=== PATIENT | female | born 1950 | race Caucasian/White ===

== ENCOUNTER → 2016-12-17 | Day surgery (SDC) | payer BC ==
[2016-11-18 09:13] VITALS: Ht 165.1 cm; Wt 63.6 kg
[~2016-12-17] VITALS: Ht 165.1 cm; Wt 63.6 kg
[~2016-12-17] MED LIST: ATOR-22 PO; CITA40TA12 PO; CLON0.5T3 PO; CYCL10TA6 PO; HYDR25TA4 PO; IOPAMIDOL INJ 61% 15 ML VIAL ONE; IRBE1TAB50 PO; LIDOCAINE HCL 1% MPF 5 ML VIAL ONE; SODIUM CHLORIDE 0.9% INJ 10 ML VIAL ONE
[2016-12-17 12:17] VITALS: TEMP 37.1
--- NOTE | 2016-12-17 13:02 | History & Physical Bridge - [place] ---
H&P Re-Evaluation Bridge Note: I have examined the patient, reviewed the History & Physical and in the interval since the performance of the History & Physical I have noted the following changes of clinical significance: No changes noted
[2016-12-17 13:30] VITALS: BP 154/75; PULSE 71; O2SAT 96
--- NOTE | 2016-12-17 13:32 | Discharge Instructions ---
Discharge Instructions Date of Service Dec 17, 2016. Visit Reason for Visit: Lumbar Radiculopathy Discharge Discharge Diagnosis / Problem: right leg pain Discharge Goals Goal(s): Decrease discomfort, Improve function Activity Recommendations Activity Limitations: resume your previous activity Anesthesia . Post Anesthesia Instructions: If you have had General Anesthesia or IV Sedation: * Do not drive today. * Resume driving when surgeon permits. * Do not make important decisions or sign legal documents today. * Call surgeon for: 1. Temperature elevations greater than 101 degrees F. 2. Uncontrollable pain. 3. Excessive bleeding. 4. Persistent nausea and vomiting. 5. Medication intolerance (nausea, vomiting or rash). * For nausea and vomiting use only clear liquids such as: tea, soda, bouillon until nausea subsides, then gradually increase diet as tolerated. * If you have any concerns or questions, call your surgeon's office. If physician is unavailable and it is an emergency, call 911 or go to the nearest emergency room. . Diet Recommendations Recommended Home Diet: resume previous diet Procedures Procedures Performed: Lumbar Epidural Steroid Injection. Pending Studies Studies pending at discharge: no Medical Emergencies . Who to Call and When: Medical Emergencies: If at any time you feel your situation is an emergency, please call 911 immediately. . Non-Emergent Contact Non-Emergency issues call your: Specialist . . "Provider Documentation" section prepared by Narciso Hoover. .
--- NOTE | 2016-12-17 16:14 | [facility] Operative Report ---
Operative Report Date of Service Dec 17, 2016. Operative Report DICTATED BY: Narciso Hoover M.D. DATE OF SURGERY: 12/17/16. DATE OF OPERATION: 12/17/2016 PREOPERATIVE DIAGNOSIS: L4-L5 herniated nucleus pulposus with a right L5 radiculopathy. POSTOPERATIVE DIAGNOSIS: Same. PROCEDURE: Right L5-S1 paramedian intralaminar epidural steroid injection under fluoroscopic guidance. INDICATIONS: The patient is a 66-year-old white female who presents today for an epidural injection to decrease discomfort and improve function as she has failed conservative physical therapy and medications. She has classic pain radiating down the L5 dermatomal distribution of her right leg. CONSENT: Verbal and written consent was obtained from the patient. Risks and benefits were reviewed. Risks include but are not limited to epidural hematoma, allergic reaction, and dural puncture. The patient wishes to proceed. PROCEDURE: The patient was taken back to the special procedures room of [facility] where she was maintained in a prone position. Backside was cleansed with Betadine x3 and a dry sterile dressing was applied. Fluoroscope was used to identify the L5-S1 intralaminar space and overlying skin was anesthetized with 4 mL of lidocaine 1% with a 25 gauge 1.5-inch needle. A 22-gauge 3-1/2 inch Tuohy needle was then directed down towards the intralaminar space and was advanced under lateral fluoroscopic guidance and loss of resistance was noted at a depth of 5 cm. Isovue-300 contrast 1 mL was injected in which demonstrated epidural uptake pattern with spread that was confirmed with both AP and lateral views. She then underwent injection after negative aspiration of 40 mg of Depo-Medrol and 4 mL of preservative free sodium chloride. Injection was well tolerated. DISPOSITION: 1. The patient is taken out into the discharge recovery area where she will be discharged home once discharge criteria have been met. 2. Follow up in the [facility] office in 2-4 weeks. I attest to the content of the Intraoperative Record and any orders documented therein. Any exceptions are noted below. I attest to the content of the Intraoperative Record and any orders documented therein. Any exceptions are noted below.
== END | disposition home or self-care (01) ==
LOC: X.SURG 12:02
PROVIDERS: ATTEND Physical Medicine & Rehabilitation
DX: M51.16 Intervertebral disc disorders with radiculopathy, lumbar region (principal)

== ENCOUNTER → 2016-12-31 | Outpatient (CLI) | payer BC ==
[~2016-12-31] MED LIST changes: -IOPAMIDOL INJ 61% 15 ML VIAL ONE; -LIDOCAINE HCL 1% MPF 5 ML VIAL ONE; -SODIUM CHLORIDE 0.9% INJ 10 ML VIAL ONE
--- NOTE | 2017-01-01 07:53 | MAMMOGRAPHY REPORT ---
BILATERAL DIGITAL SCREENING MAMMOGRAM TOMOSYNTHESIS WITH CAD: 12/31/2016 CLINICAL HISTORY: Routine screening. Patient has no complaints. TECHNIQUE: Breast tomosynthesis in addition to standard 2D mammography was performed. Current study was also evaluated with a Computer Aided Detection (CAD) system. COMPARISON: Comparison is made to exams dated: 12/14/2015 mammogram, 12/12/2014 mammogram, 06/28/2013 bulmaro mogram, 02/14/2011 mammogram, 04/05/2009 mammogram, and 07/11/2003 mammogram - [facility] er. BREAST COMPOSITION: The tissue of both breasts is heterogeneously dense, which may obscure small mas ses. FINDINGS: No new suspicious mass, architectural distortion or cluster of microcalcifications is seen . There are stable postsurgical changes in the right breast, with several surgical clips remaining i n place. Stable benign-appearing microcalcifications in the anterior right breast. IMPRESSION: ACR BI-RADS CATEGORY 1: NEGATIVE There is no mammographic evidence of malignancy. A 1 year screening mammogram is recommended. The pa tient will receive written notification of the results. Approximately 10% of breast cancers are not detected with mammography. A negative mammographic report should not delay biopsy if a clinically suggestive mass is present. Pia Shahid M.D. ay/:12/31/2016 15:54:54 [place]: Marisol Butler, [facility] letter sent: Normal 1/2 BI-RADS Code: ACR BI-RADS Category 1: Negative
== END | disposition home or self-care (01) ==
LOC: C.MAMM 14:19
PROVIDERS: ATTEND Family Medicine
DX: Z12.31 Encounter for screening mammogram for malignant neoplasm of breast (principal)

== ENCOUNTER 2022-09-04 06:33 | Observation (INO) ==
--- NOTE | 2022-08-07 12:09 | PAT Medication Instructions ---
Medication Instructions Date of Service August 07, 2022 Home Medications amlodipine 5 mg tablet (Norvasc) 10 mg PO QAM citalopram 40 mg tablet 40 mg PO QAM clonazepam 0.5 mg tablet 0.5 mg PO HS irbesartan 300 mg tablet (Avapro) 300 mg PO QAM metformin 500 mg tablet 500 mg PO QAM atorvastatin 40 mg tablet 40 mg PO HS iron polysaccharide complex-iron heme polypeptide 28 mg tablet (Feosol Bifera) 1 tab PO 3XWK methocarbamol 500 mg tablet 500 mg PO Q8H PRN Pain gabapentin 300 mg tablet 300 mg PO TID DO NOT take the morning of surgery irbesartan 300 mg tablet (Avapro) 300 mg PO QAM metformin 500 mg tablet 500 mg PO QAM iron polysaccharide complex-iron heme polypeptide 28 mg tablet (Feosol Bifera) 1 tab PO 3XWK methocarbamol 500 mg tablet 500 mg PO Q8H PRN Pain Take morning of surgery With a small sip of water, OTHERWISE NOTHING TO EAT OR DRINK AFTER MIDNIGHT: amlodipine 5 mg tablet (Norvasc) 10 mg PO QAM citalopram 40 mg tablet 40 mg PO QAM gabapentin 300 mg tablet 300 mg PO TID Take evening before surgery clonazepam 0.5 mg tablet 0.5 mg PO HS atorvastatin 40 mg tablet 40 mg PO HS methocarbamol 500 mg tablet 500 mg PO Q8H PRN Pain (if needed) gabapentin 300 mg tablet 300 mg PO TID Other Notes If you have any questions please call us at [phone] or [phone] or [phone] or [phone]
--- NOTE | 2022-08-12 15:43 | Anesthesiology Consultation ---
Date of Service August 12, 2022 Assessment & Plan (1) Encounter for pre-operative examination: - check BSG am DOS. - potential difficult intubation: limited cervical spine extension s/p cervical spine surgery. - Outpatient joint assessment: Patient is currently scheduled for inpatient pathway. If re-evaluated pending system levels during current pandemic/surgeon requests outpatient pathway, patient is not recommended candidate for outpatient joint program from anesthesia standpoint. Chart Review Chart Review: Acceptable Risk for Surgery and Patient seen in Pre Admission Testing Teaching & Discussion Pre-Anesthesia Teaching/Discussion Notes: Instructed NPO after midnight before surgery, except medications with 15 cc of water. Medication instructions provided according to the PAT guidelines. History Surgery Operation Date: 09/04/22 09:15 Proposed Procedures p Left Total Hip Arthroplasty - Scot Dickey MD Height/Weight Height: 5 ft 5 in Weight: 63.503 kg Allergies Allergy/AdvReac Type Severity Reaction Status Date / Time adhesive Allergy Mild RASH, SKIN Verified 08/07/22 09:49 MOORE nickel Allergy Mild RASH Verified 08/07/22 09:49 Sulfa (Sulfonamide Allergy Unknown UNSURE, Verified 08/07/22 09:49 Antibiotics) A CHILD Medications Home Medications Medication Instructions Recorded Confirmed Last Taken amlodipine 5 mg tablet (Norvasc) 10 mg PO QAM 02/18/19 08/07/22 05/19/22 11:00 citalopram 40 mg tablet 40 mg PO QAM 02/18/19 08/07/22 05/19/22 11:00 clonazepam 0.5 mg tablet 0.5 mg PO HS 02/18/19 08/07/22 05/18/22 irbesartan 300 mg tablet (Avapro) 300 mg PO QAM 02/18/19 08/07/22 05/18/22 metformin 500 mg tablet 500 mg PO QAM 10/22/20 08/07/22 Unknown atorvastatin 40 mg tablet 40 mg PO HS 01/08/22 08/07/22 05/18/22 iron polysaccharide complex-iron 1 tab PO 3XWK 01/08/22 08/07/22 05/16/22 heme polypeptide 28 mg tablet (Feosol Bifera) methocarbamol 500 mg tablet 500 mg PO Q8H PRN Pain 01/08/22 08/07/22 05/18/22 gabapentin 300 mg tablet 300 mg PO TID 08/07/22 08/07/22 Unknown omeprazole 10 mg capsule,delayed 10 mg PO QPM 08/12/22 08/12/22 Unknown release Past Medical History Medical History (Updated 08/13/22 @ 15:06 by Frankie Knowles PA-C) Anxiety and depression Bilateral lumbar radiculopathy Chronic back pain COPD (chronic obstructive pulmonary disease) pt unsure of diagnosis-denies SOB, coughing, wheezing currently or in past-denies being rx inhaler Diabetes mellitus, type 2 NIDDM GERD (gastroesophageal reflux disease) occasional, resolved with prn prilosec History of kidney stones Hyperlipidemia Hypertension controlled, stable per pt Patient denies h/o stroke, seizures, heart attack, heart failure, blood clots or blood transfusions. Exercise / Class Metabolic Activity II 4-5 Yardwork/Stairs/Walk up hill (denies chest discomfort or shortness of breath with 1 FOS) Past Family History Family History Brother FH: kidney cancer Past Surgical History Surgical History (Updated 08/12/22 @ 16:02 by Lorraine Min PA-C) History of appendectomy History of bilateral tubal ligation History of breast biopsy RIGHT-benign History of colonoscopy History of endometrial ablation History of lithotripsy History of total hip arthroplasty RIGHT Hx of lumpectomy RIGHT S/P cervical spinal fusion [id number] (done with Dr Treviño, [facility]) 12/2020. limited motion looking up. S/P epidural steroid injection Past Anesthesia History No Hx of Anesthesia Complications and No Family Hx of Anesthesia Complications History of PONV No Hx of Motion Sickness and History of PONV (denies needing scop patch) Social History Smoking Status: Current every day smoker (3 cigarettes daily-advised) tobacco type: cigarettes Smoking cigarettes per day: QUIT 06/2022 Do You Dip or Chew Tobacco: No Hx Alcohol Use: No Hx Substance Use: No substance use type: does not use Review of Systems Snoring, denies witnessed apneas. Patient denies chest pain, shortness of breath, dyspnea on exertion, fever, chills, cough, wheezing, or palpitations. Physical Exam Vital Signs Vitals BP 120/77 P 72 TEMP 97.5 SP02 94% on RA RESP 18 Physical Limited cervical extension range of motion without pain TMD 3.5 finger breadths Mallampati Score 3, small oral opening Dentition: multiple caps/crowns; denies chipped or loose teeth, implants or bridges Lungs: normal respiratory effort. Good air movement, clear throughout to auscultation, no adventitious breath sounds Cardiac: regular rate and rhythm, no murmurs noted Carotid arteries: negative bruit bilat Lab Results Anesthesia Preop Results Results Anesthesia Widget: WBC 11.30 K/ul (4.8-10.8) H 08/12/22 Hgb 14.1 g/dl (12.0-16.0) 08/12/22 Hct 42.7 % (37.0-47.0) 08/12/22 Plt 365 K/uL (130-400) 08/12/22 Na 134 mmol/L (136-145) L 08/12/22 K 4.6 mmol/L (3.5-5.1) 08/12/22 Cl 99 mmol/L (98-107) 08/12/22 CO2 30 mmol/L (21-32) 08/12/22 BUN 16 mg/dl (6-23) 08/12/22 Creat 0.63 mg/dl (0.6-1.2) 08/12/22 Glucose Level 83 mg/dl (70-99(Fasting)) 08/12/22 PT 10.3 Seconds (9.0-12.0) 08/12/22 PTT 28.6 Seconds (21.0-31.0) 08/12/22 INR 1.0 (0.9-1.1) 08/12/22 HA1c 6.1 % (4.5-5.6) H 08/12/22 Urine Color Yellow 08/12/22 Urine Appearance Clear (Clear) 08/12/22 Urine pH 5.5 (4.5-7.5) 08/12/22 Urine Specific [place] 1.018 (1.000-1.030) 08/12/22 Urine Protein Negative (Negative) 08/12/22 Urine Glucose (UA) Negative (Negative) 08/12/22 Urine Ketones Trace (Negative) H 08/12/22 Urine Blood Negative (Negative) 08/12/22 Urine Nitrite Negative (Negative) 08/12/22 Urine Bilirubin Negative (Negative) 08/12/22 Urine Urobilinogen Negative (Negative) 08/12/22 Urine Leukocyte Esterase 2+ (Negative) H 08/12/22 Urine WBC (Auto) 10-30 /hpf (0-5) H 08/12/22 Urine RBC (Auto) 5-10 /hpf (0-4) H 08/12/22 Urine Hyaline Casts (Auto) 1-5 /lpf (0-5) 08/12/22 Urine Epithelial Cells (Auto) >30 /lpf (0-5) H 08/12/22 Urine Bacteria (Auto) Negative (Negative) 08/12/22 Blood Type O Positive 08/12/22 Antibody Screen NEGATIVE 08/12/22 Testing Electrocardiogram Date: 08/12/22 NSR, rate 65 bpm COVID-19 Risk Screen Screening Information COVID-19 Screen Date: 08/12/22 Exposure 21 Days Family/Household +COVID Last 21 Days: No Exposure 10 Days Any COVID Exposure Last 10 Days: No Symptoms Last 10 Days Experienced COVID Sx Last 10 Days: No + COVID 0-90 Days COVID + in Last 0-90 Days: No
--- NOTE | 2022-08-13 15:07 | History & Physical Report ---
Date of Service August 13, 2022 Assessment & Plan (1) Osteoarthritis of left hip: Plan: PRE-OP Diagnosis: Left hip osteoarthritis Planned Procedure: Left total hip arthroplasty Plan: Patient is scheduled to undergo this procedure at the [facility] with a 23-hour observation admission with Dr. Dickey on August. Risks and complications of the procedure such as: Infection, bleeding, pain, scarring, nerve blood vessel damage, weakness, wound problems, stiffness, incomplete relief of symptoms, hardware failure, hardware loosening, wear, fracture, tendon or ligament injury, dislocation, leg length inequality, blood clots, Embolism, heart attack, stroke and were explained to the patient at her visit today. Informed consent to perform the procedure was obtained. Patient also understands risks of proceeding with surgical intervention during the COVID-19 pandemic. Currently she is asymptomatic and has not been in contact with anyone positive for the virus recently. Patient has an appointment to meet with anesthesia later today and while there will obtain CBC with differential, complete metabolic panel, PT/INR, blood type and screen, urinalysis, urine culture and sensitivity, EKG, hemoglobin A1c and a nasal cu lture for MRSA. Patient will also need preoperative medical clearance from their primary care provider Dr. Hammond. Patient states that she plans on doing in-home physical therapy for the first 1 to 2 weeks postoperatively. Patient will need a walker, raised toilet seat, shower chair and a hip kit. During today's visit we reviewed the total hip packet as well as precautions. We discussed discharge planning from the hospital. I provided paperwork to obtain a handicap placard for their vehicle. We discussed lectures offered by [facility] in regards to joint replacement surgery via Zoom. I advised the patient that upon discharge from hospital we will prescribe a narcotic pain medication and anti-inflammatory. Patient will also be on an 81 mg aspirin twice daily for blood clot prevention. Patient will be scheduled for 2-week postoperative follow-up visit with myself on September 17 at 9:45 AM. At that visit we will Provide the patient with an order for outpatient physical therapy and rehab protocol. Patient verbalizes understanding of all information provided during today's visit. She thanks for the care that she received. If she has questions or concerns that should arise prior to her surgery, she will contact clinic. Due to the patient's adhesive allergies, recommend closure with Monocryl and Tegaderms instead of Zipper and Silverlon. Can still use Dermabond. This chart was completed utilizing [employer] voice recognition software. Grammatical errors, random word insertions, pronoun errors, and in complete sentences are an occasional consequence of the system. Any questions or concerns about the content, text, or information contained within the body of this dictation should be addressed directly to the physician for clarification. History of Present Illness Chief Complaint: Chief Complaint: Left hip pain Primary Care Provider: Richar Murray DO History of Present Illness (including history relevant to procedure): This 72-year-old female presents to the clinic today for preoperative history and physical. Patient complains of significant left-sided groin pain that has been increasing over the past several months. She states that at times she does experience pain that radiates into her thigh. She feels that her range of motion in the hip is very limited as well. Patient states that she had a right total hip arthroplasty performed by Dr. Anitra vogt in 2012 and states that her symptoms present really are exactly the same way that her right hip was before having the replacement. Patient is electing to undergo surgical intervention for her severe left hip osteoarthritis. Review Of Systems: A 12 point review of systems is performed and is unremarkable except for those things stated in the HPI and past medical history. Past Medical History: Problems: Left lumbar radiculitis Diabetes mellitus with peripheral angiopathy without gangrene Osteopenia Major depression in complete remission Peripheral arterial disease History of fusion of cervical spine Cataract associated with type 2 diabetes mellitus Stenosis of cervical spine with myelopathy Lumbar disc narrowing Right lumbar radiculopathy Hypercholesterolemia Solitary thyroid nodule Hypertension Emphysema/COPD Anxiety Low back pain Sacroiliac joint dysfunction of right side Hip osteoarthritis Tobacco user DJD (degenerative joint disease) Procedure History Procedure Procedure Date Comments Appendectomy Kidney stone - kidney stone--laser sx Tubal ligation Epidural steroid injection 05/19/2022 - Left paramedial L5-S1 interlaminar epidural steroid injection under flu oroscopic guidance Epidural steroid injection L5-S1 01/16/2022 Mammogram - screening 10/15/2021 - Impression: There is no mammographic evidence of malignancy. A 1 year screening mammogram is recommended. (10/16/2022). The patient will receive written notification of the results. Bone density scan 10/15/2021 - left femur and left forearm (due to high spine density and history of right hip replacement)Femur neck t-score =- 1.5Femur total t-score = -1.5Forearm radius t-score = -2.110 year probability of fracture:major osteoporotic frature = 9.7%hip fracture 2.3%Repeat bone density test in October 2023 Lumbar epidural steroid injection AND SEPTEMBER 2020 04/02/2020 Right paramedian L5-S1 interlaminar epidural steroid injection under fluoroscopic guidance 04/02/2020 - Preoperative diagnoses: Lumbar spinal stenosis with right greater than left lumbar radiculopathy. Ultrasound of right breast maxillary soft tissue 01/05/2020 - Impression:1. No pathologic right axillary lesions were visualized ultrasonographically. Clinical follow-up is advocated. Lumbar epidural steroid injection 07/28/2019 - Pre-Op Diagnosis: Lumbar Radiculopathy Bilateral Digital Screening Mammogram Tomosynthesis with CAD 12/02/2018 - Impression: ACR BI RADS CATEGORY 2: BenignThere is no mammographic evidence of malignancy. DEXA - Dual energy X-ray photon absorptiometry 12/02/2018 Colonoscopy 10/28/2017 - tubular adenoma - repeat colonoscopy in 5 years - diverticulosis in the sigmoid colon'a singke non-bleeding colonc angioectasia. treated with heater probeone 7mm polyp in the proximal ascending colon, removed with a hot snare. resected and retrivedtwo 2 to 3 vmm polyps in the rectum, removed with a cold biopsy forcepsresected and retrieved Mammogram 12/31/2016 - Impression: ACR BI-RADS CATEGORY 1 : Negative there is no mammographic evidence of malignancy1 year F/U recommended MRI of lumbar spine 05/06/2016 - 1. Severe degenerative intervertebral this changes throughout the entire lumbar spine.2. Prominent right central disc herniation L4-L5 with significant impact upon the thecal sac and narrowing of the neuroforamina primarily on the right. 3. Broad-based central disc herniation L2-L34. Mild broad-based disc herniation L1-L25. Moderate rather significant narrowing of the neuroforamina bilaterally at all levels discribed. Date of last PAP test 11/20/2014 Ultrasound scan of thyroid 01/10/2014 - Numerous small hypochoic foci in the thyroid bilaterally, the largest probably is a cystic lesion, benign appearing in the mid pole on the right measuring a maximum of 0.6cm. These lesions might be followed for stability. CT of chest 10/12/2013 - 1. Mild emphysematous changes2. There are multiple foci of nodular airspace consolidation seen in the upper lobes, right greater than left. This corresponds to the abnormality seen by chest x-ray. The appearance is most suggestive of an infectious or inflammatory process. Neoplasm is considered much less likely but not excluded. F/U to resolution is recommended.3. Mildly enlarged right hilar lymph nodes are likely reactive in nature.4. No pleural effusion is seen right total hip replacement 02/17/2013 Colonoscopy 11/17/2012 Shoulder manipulation 09/13/2010 - Left shoulder manipulatin and injection Allergies and Sensitivities: sulfa drugs(RASH CHILD) Adhesive bandage(rash) Nickel(rash) Family history: Cancer, heart disease, leukemia and stroke Social history: Patient states that she was 1/2 pack/day smoker for many years and is recently cut down to 3 cigarettes/day. Her goal is to be completely tobacco free before her surgery date. She denies alcohol or illicit drug use. Current Home Meds: (Last Updated 08/13 11:53) amLODIPine (amLODIPine 5 mg oral tablet) TAKE 1 TABLET BY MOUTH ONCE DAILY atorvastatin (atorvastatin 40 mg oral tablet) TAKE 1 TABLET BY MOUTH ONCE DAILY ciprofloxacin (Cipro 500 mg oral tablet) 500 mg PO q12h UTI citalopram (citalopram 40 mg oral tablet) 40 mg PO Daily clonazePAM (clonazePAM 0.5 mg oral tablet) 0.75 mg PO qhs fluticasone nasal (Flonase 50 mcg/inh nasal spray) 2 spray each nostril bid PRN gabapentin (gabapentin 100 mg oral capsule) 100 mg PO tid take 1 cap TID x 3 days then increase to 2 cap TID x 3 days then switch to 300mg dose. gabapentin (gabapentin 300 mg oral capsule) 300 mg PO tid complete the 100mg capsule regimen first then start the 300mg irbesartan (irbesartan 300 mg oral tablet) 300 mg PO Daily iron polysaccharide (Ferrex-150 oral capsule) 150 mg PO qMonWedFri metFORMIN (metFORMIN 500 mg oral tablet) 500 mg PO Daily omeprazole (PriLOSEC 20 mg oral delayed release capsule) 20 mg PO qhs NEEDED Allergies Allergy/AdvReac Type Severity Reaction Status Date / Time adhesive Allergy Mild RASH, SKIN Verified 08/07/22 09:49 MOORE nickel Allergy Mild RASH Verified 08/07/22 09:49 Sulfa (Sulfonamide Allergy Unknown UNSURE, Verified 08/07/22 09:49 Antibiotics) A CHILD Home Medications Medication Instructions Recorded Confirmed Type amlodipine 5 mg tablet (Norvasc) 10 mg PO QAM 02/18/19 08/07/22 History citalopram 40 mg tablet 40 mg PO QAM 02/18/19 08/07/22 History clonazepam 0.5 mg tablet 0.5 mg PO HS 02/18/19 08/07/22 History irbesartan 300 mg tablet (Avapro) 300 mg PO QAM 02/18/19 08/07/22 History metformin 500 mg tablet 500 mg PO QAM 10/22/20 08/07/22 History atorvastatin 40 mg tablet 40 mg PO HS 01/08/22 08/07/22 History iron polysaccharide complex-iron 1 tab PO 3XWK 01/08/22 08/07/22 History heme polypeptide 28 mg tablet (Feosol Bifera) methocarbamol 500 mg tablet 500 mg PO Q8H PRN Pain 01/08/22 08/07/22 History gabapentin 300 mg tablet 300 mg PO TID 08/07/22 08/07/22 History omeprazole 10 mg capsule,delayed 10 mg PO QPM 08/12/22 08/12/22 History release Past Med/Surg History Medical History (Updated 08/13/22 @ 15:06 by Frankie Knowles PA-C) Anxiety and depression Bilateral lumbar radiculopathy Chronic back pain COPD (chronic obstructive pulmonary disease) pt unsure of diagnosis-denies SOB, coughing, wheezing currently or in past- denies being rx inhaler Diabetes mellitus, type 2 NIDDM GERD (gastroesophageal reflux disease) occasional, resolved with prn prilosec History of kidney stones Hyperlipidemia Hypertension controlled, stable per pt Surgical History (Updated 08/12/22 @ 16:02 by Lorraine Min PA-C) History of appendectomy History of bilateral tubal ligation History of breast biopsy RIGHT-benign History of colonoscopy History of endometrial ablation History of lithotripsy History of total hip arthroplasty RIGHT Hx of lumpectomy RIGHT S/P cervical spinal fusion [id number] (done with Dr Treviño, [facility] [place]) 12/2020. limited motion looking up. S/P epidural steroid injection Family History Brother FH: kidney cancer Social History Smoking Status: Current every day smoker (3 cigarettes daily-advised) Cigarettes Per Day: QUIT 06/2022; Second Hand Exposure: No; Hx Alcohol Use: No Hx Substance Use: No Preferred Language: Somali Communication Ability: Effective Administrative Law Judge Required: No Beliefs That Will Affect Care: None Current Living Situation: Spouse Feels Safe at Home: Yes Assistive Devices: Glasses Physical Exam Physical Exam: Physical Exam: (relevant to the procedure, including heart and lung evaluation) General: Alert and oriented x3 with proper grooming and hygiene Eyes: Pupils are equal and reactive to light with accommodation. Extraocular movements are intact Throat: Posterior oropharynx clear with absence of edema, erythema or exudate. Dentition is appropriate Cardiac: Regular rate and rhythm with no murmurs or gallops appreciated Lungs: Clear to auscultation throughout with no wheezing, rales or rhonchi Abdomen: Nonobese, nondistended, nontender with NABS Extremities: Left hip; flexion is limited to 110 degrees, internal rotation to 5 degrees and external rotation to 40 degrees. Patient has a positive straight leg raise test, positive Stinchfield test, positive scour impingement test, and has tenderness to palpation over her groin. She is neurovascularly intact. Quad strength is 4 out of 5. Neuro: Cranial nerves II to XII are intact with no motor or sensory deficit Skin: Normal appearance no open skin areas or discharge Results & Data ([facility]) Diagnostic Findings Studies (relevant to the procedure): Recent x-rays are reviewed. These demonstrate severe osteoarthritis in the left hip with joint space narrowing, subchondral sclerosis, and marginal osteophyte formation.
[~2022-09-04 06:33] MED LIST changes: +ACETAMINOPHEN 500 MG TAB PO SCH; -ATOR-22 PO; +BUPIVACAINE 0.5 % 5 MG/1 ML PF 10ML VIAL ONE; -CITA40TA12 PO; -CLON0.5T3 PO; -CYCL10TA6 PO; +FAMOTIDINE 20 MG TAB PO SCH; -HYDR25TA4 PO; -IRBE1TAB50 PO; +LR 500ML BOLUS, THEN 15ML/HR IV SCH; +LR 60ML/HR IV SCH; +ROPIVACAINE 0.5% HCL/PF 150 MG, BUPIVACAINE 0.75% MPF 20 ML, EPINEPHrine 0.15 MG, Ketor... INFIL SCH; +Scopolamine 1 MG TDSY TD SCH; +TRANEXAMIC ACID 1,000 MG **IV Intra-op IV SCH; +TRANEXAMIC ACID 1,000 MG **IV Pre-op IV SCH; +ceFAZolin 2000MG 2,000 MG/15 ML SYR IV SCH; +traMADol HCL 50 MG TABLET PO SCH
[2022-09-04] MEDS ORDERED: ATROPINE SULFATE 0.1 MG/ML 10ML SYR IV PRN (06:55)
[2022-09-04] MEDS ORDERED: fentaNYL citrate PF 100 MCG/2 ML VIAL IV PRN (06:55)
[2022-09-04] MEDS ORDERED: ONDANSETRON INJ 2 MG/ML 2 ML VIAL IV PRN ×2 (06:55→11:19)
[2022-09-04] MEDS ORDERED: ePHEDrine sulfate 50 MG/ML AMP IV PRN (06:55)
[2022-09-04] MEDS ORDERED: fentaNYL citrate PF 100 MCG/2 ML VIAL ONE (08:12)
[2022-09-04] MEDS ORDERED: MIDAZOLAM HCL 1 MG/ML 2ML VIAL ONE (08:12)
[2022-09-04] MEDS ORDERED: PROPOFOL IV EMULSION 10 MG/ML 20 ML VIAL IV ONE (08:12)
--- NOTE | 2022-09-04 08:42 | History & Physical Bridge Note ---
Date of Service September 04, 2022 History & Physical Bridge Note I have examined the patient, reviewed the History & Physical and in the interval since the performance of the History & Physical I have noted the following changes of clinical significance: no changes noted
[2022-09-04] MEDS ORDERED: ORTHO JOINT ANESTHETIC ONE (08:51)
[2022-09-04] MEDS ORDERED: ONDANSETRON INJ 2 MG/ML 2 ML VIAL ONE (10:16)
[2022-09-04] MEDS ORDERED: ALUMINUM/MAGNESIUM SUSP 30 ML UDC PO PRN (11:19)
[2022-09-04] MEDS ORDERED: diphenhydrAMINE 50 MG/ML VIAL IV PRN (11:19)
[2022-09-04] MEDS ORDERED: bisacodyL 10 MG SUPP PR PRN (11:19)
[2022-09-04] MEDS ORDERED: HYDROmorphone INJ 0.5 MG/0.5 ML SYR IV PRN (11:19)
[2022-09-04] MEDS ORDERED: MAGNESIUM HYDROXIDE SUSP 30 ML UDC PO PRN (11:19)
[2022-09-04] MEDS ORDERED: NALOXONE HCL 0.4 MG/1 ML VIAL/CARP IV PRN (11:19)
[2022-09-04] MEDS ORDERED: oxyCODONE HCL IR 5 MG TAB (IMMEDIATE RELEASE) PO PRN (11:19)
[2022-09-04] MEDS ORDERED: METOCLOPRAMIDE HCL INJ 5 MG/ML 2 ML VIAL IV PRN (11:19)
--- NOTE | 2022-09-04 11:19 | Operative Report ---
Post Operative Report Pre & Post Diagnosis Operation Date: 09/04/22 09:10 Pre-Op Diagnosis: Left Hip Osteoarthrits Post-Op Diagnosis: Left Hip Osteoarthrits I identified the patient and participated in the time-out.: Yes Procedure Operation Date: 09/04/22 09:10 Actual Procedures p Left Total Hip Arthroplasty--Uncemented(Left) - Scot Dickey MD Surgeon Scot Dickey MD Rat Farmer Caity FORBESC; Miguelangel Dubois MS-2 Estimated Blood Loss 100 Findings Consistent with Post-Op Diagnosis Specimens femoral head Description of Procedure I was present during the entire case assisting with positioning, prepping, draping, wound retraction, wound closure, dressing and abduction pillow placement. No fellow present. Please see Dr. Dickey procedure note for specifics of the case. I attest to the content of the Intraoperative Record and any orders documented therein. Any exceptions are noted below.
--- NOTE | 2022-09-04 11:19 | Operative Report ---
Post Operative Report Pre & Post Diagnosis Operation Date: 09/04/22 09:10 Pre-Op Diagnosis: Left Hip Osteoarthrits Post-Op Diagnosis: Left Hip Osteoarthrits I identified the patient and participated in the time-out.: Yes Procedure Operation Date: 09/04/22 09:10 Actual Procedures p Left Total Hip Arthroplasty--Uncemented(Left) - Scot Dickey MD Surgeon Scot Dickey MD Ticket Puller VIRIDIANA Knowles PA-C and Miguelangel Jc MS-2. No resident was available to assist Estimated Blood Loss 100 Findings Consistent with Post-Op Diagnosis Specimens Left hip femoral head Anesthesia Type Spinal MAC Complications none Disposition Disposition: Recovery Room Indications 72-year-old female with left hip arthritis refractory to conservative management. X-rays demonstrate [id number] disease. I do long discussion with her about the risks and benefits surgery, alternatives, and expected outcomes. After reviewing all these she elected to proceed with surgery. All questions were answered. Informed consent was signed. Description of Procedure Patient was identified in the preoperative holding area where the surgical site, left hip, was marked. A spinal anesthetic was placed, then the patient was brought back to the main operating room, placed in the operating table and moved into the lateral decubitus position. Axillary roll was placed. All bony prominences were padded. Perioperative antibiotics and tranexamic acid 1 gram IV were administered. Operative extremity was prepped and draped in the normal sterile fashion. Prior to incision a multidisciplinary timeout was called. All in the room were in agreement. We began by making an incision for a posterior approach to the hip. We dissected down through subcutaneous tissues to the level of the fascia. The fascia was incised in line with the incision. Charnley bow was placed. Fatty tissue was reflected posteriorly off the back of the greater trochanter to expose the piriformis and short external rotators of the hip. The piriformis and short external rotators were dissected off the posterior aspect of the hip. A box cut was made in the capsule. Inferior hip capsule was released off the femur. The femoral head was dislocated. The femoral neck cut was made at our preoperative template. The acetabulum was then exposed. The labrum was sharply excised. Contents of the cotyloid fossa were removed with electrocautery. We then began reaming at a size 8 mm less than our preoperative template. We reamed up by [address] the way up to a size 52 mm cup. This gave us good bleeding cancellus bone circumferentially. The acetabulum was then irrigated out and dried. The real [place] Gription cup was then impacted down into position with 45 degrees of lateral opening and 25 degrees of anteversion. A single cancellous bone screw was placed up into the ilium. Excellent fixation was obtained. A trial liner for a 32 mm femoral head was then placed. Next we turned our attention to the femur. The lateral neck was removed with a box osteotome. Intramedullary guide was used followed by the lateralizing reamer. We then reamed up to a size 5 Arthur stem. We then broached all the way up to a size 5. We began trialing with a standard offset neck and a +1 head. Hip was reduced. Leg lengths were symmetric. The hip was stable in extension and external rotation, and stable in the sleeper position. At 90 degrees of hip flexion the hip could be internally rotated 55 degrees before levering out of the cup. I was very happy with the stability exam. Therefore the hip was dislocated and the femoral trial was removed. The acetabulum was re-exposed, and the trial liner was removed. An Altrx polyethylene liner for a 32 mm femoral head was then impacted into the shell. The locking mechanism was checked to ensure that it had engaged which it had. The femur was re-exposed. The femoral canal was irrigated and dried. The real size 5 standard offset Arthur femoral stem was opened up. This was impacted down into position. It sat at the same level as the femoral trial. Therefore the 32 mm ceramic femoral head with +1 mm offset was opened up and gently impacted down onto the trunnion. The hip was atraumatically reduced. Another 1 gram of IV tranexamic acid was started prior to closure. The wound was irrigated out with sterile Betadine solution. The periarticular injection cocktail was then placed. The short external rotators, piriformis, and posterior capsule were repaired through drill holes in the greater trochanter using #2 Vicryl. The fascia was run with a looped #1 PDS. The subcutaneous layer was closed with #1 PDS. The dermal layer was closed with 2-0 Vicryl. Zip line was used for the skin followed by a Silverlon dressing. A compressive dressing was then placed. The patient was then rolled supine. Leg lengths were rechecked and were symmetric. An abduction pillow was placed. Sedation was lifted and the patient was transferred to the recovery room in stable condition. Summary of implants: Depuy [place] Gription Acetabular Shell Sector Cup, 52 mm outer diameter [place] Cancellous bone screw, 6.5 x 35 mm [place] Altrx Polyethylene Acetabular Liner, Neutral, with a 32 mm inner diameter DePuy Arthur Femoral stem with Por[place]oat, 12/14 taper, size 5 standard offset 32 mm ceramic femoral head with +1 offset Postoperative course: Patient will be admitted overnight to the hospital from the recovery room. Patient will be weightbearing as tolerated with posterior hip precautions. Aspirin for DVT prophylaxis I attest to the content of the Intraoperative Record and any orders documented therein. Any exceptions are noted below.
[2022-09-04] MEDS ORDERED: METHOCARBAMOL 500 MG TABLET PO PRN (11:23)
[2022-09-04] MEDS ORDERED: SODIUM CHLORIDE 0.9% 1000ML 1,000 ML IV SCH (11:30)
[2022-09-04] MEDS ORDERED: [UNRECOGNIZED DRUG - OTHER] PO SCH (11:30)
--- NOTE | 2022-09-04 11:48 | XRay Report ---
XR pelvis 1-2V routine HISTORY: 72 years-old Female In PACU - Post Surgical left hip arthroplasty COMPARISON: 08/12/2022 TECHNIQUE: AP view of the pelvis FINDINGS: Unchanged appearance of the right hip total joint arthroplasty the left hip arthroplasty is in satisf actory alignment. Expected postoperative soft tissue swelling with deep tissue air. No acute fracture , dislocation or unexpected opaque foreign body. Arterial calcifications. Moderate colonic fecal rete ntion. IMPRESSION: Unremarkable appearance of the left hip total joint arthroplasty. ACT 112: Negative or not required by law. The above report was generated using voice recognition software. It may contain grammatical, syntax o r spelling errors. Electronically signed by: Jonathan Arora M.D. 09/04/2022 11:47 AM
--- NOTE | 2022-09-04 12:09 | Anesthesiology Progress Note ---
Date of Service September 04, 2022 Anesthesia Post Procedure Vital Signs Vital Signs: Temp Pulse Pulse Resp BP Pulse Ox O2 Del Method 09/04/22 12:05 69 16 126/61 96 Room Air 09/04/22 11:55 65 14 104/57 L 95 Room Air 09/04/22 11:45 68 15 106/81 100 Oxymask 09/04/22 11:35 68 15 115/56 L 100 Oxymask 09/04/22 11:25 66 11 L 106/55 L 100 Oxymask 09/04/22 11:16 36.0 C L 69 15 114/64 97 Oxymask 09/04/22 07:15 36.6 C 76 20 112/64 97 Room Air O2 Flow Rate 09/04/22 12:05 09/04/22 11:55 09/04/22 11:45 6 09/04/22 11:35 6 09/04/22 11:25 11 09/04/22 11:16 11 09/04/22 07:15 Pain Intensity Left Hip: Pain Intensity: 5 Transfer of Care Handoff Completed per policy Notes Mental Status: alert / awake / arousable and participated in evaluation Patient Amnestic to Procedure: Yes Nausea / Vomiting: adequately controlled Pain: adequately controlled Airway Patency, RR, SpO2: stable & adequate BP & HR: stable & adequate Hydration State: stable & adequate Neuraxial Anesthesia: was administered and sensory block is resolving Anesthetic Complications: no major complications apparent and Pt Satisfied with anesthetic care
[2022-09-04] MEDS ORDERED: Nursing to Pharmacy Communication SCH ×2 (13:15→21:30)
[2022-09-04] MEDS: GABAPENTIN 300 MG CAP PO SCH ×2 (13:36→21:13)
[2022-09-04] MEDS: KETOROLAC TROMETHAMINE 15 MG/ML VIAL IV SCH ×2 (13:37→19:31)
[2022-09-04] MEDS: ACETAMINOPHEN 500 MG TAB PO SCH ×2 (13:37→21:12)
[2022-09-04] MEDS: Scopolamine CHECK PATCH PLACEMENT SCH (15:16)
[2022-09-04] MEDS: ceFAZolin 2000MG 2,000 MG/15 ML SYR IV SCH (17:18)
[2022-09-04] MEDS ORDERED: TRANEXAMIC ACID / 0.7% NACL 1,000 MG/100 ML BAG IV SCH (17:30)
[2022-09-04] MEDS ORDERED: clonazePAM 0.5 MG TAB PO SCH (21:00)
[2022-09-04] MEDS ORDERED: PANTOprazole 40 MG TAB PO SCH (21:00)
[2022-09-04] MEDS ORDERED: ATORVASTATIN 40 MG TAB PO SCH (21:00)
[2022-09-04] MEDS ORDERED: SENNA 8.6 MG TAB PO SCH (21:00)
[2022-09-04] MEDS: DOCUSATE SODIUM 100 MG CAP PO SCH (21:12)
[2022-09-05] MEDS: Scopolamine CHECK PATCH PLACEMENT SCH ×2 (00:14→08:21)
[2022-09-05] MEDS: ceFAZolin 2000MG 2,000 MG/15 ML SYR IV SCH (01:16)
[2022-09-05] MEDS: KETOROLAC TROMETHAMINE 15 MG/ML VIAL IV SCH ×2 (01:16→08:21)
[2022-09-05] MEDS: ACETAMINOPHEN 500 MG TAB PO SCH (06:18)
[2022-09-05] MEDS ORDERED: dexAMETHasone 4 MG TAB PO SCH (08:00)
[2022-09-05 08:17] LABS: Basophils # (auto) 0.03 K/uL (0-0.2); Basophils % (auto) 0.2 %; Eosinophils # (auto) 0.01 K/uL (0-0.50); Eosinophils % (auto) 0.1 %; Immature Granulocytes # (auto) 0.09 K/uL (0.01-0.20); Immature Granulocytes % (auto) 0.5 %; Lymphocytes # (auto) 1.47 K/uL (1.2-3.4); Lymphocytes % (auto) 8.2 %; Mean Corpuscular Hemoglobin 28.8 pg (25.0-34.0); Mean Corpuscular Hgb Conc 32.4 g/dL (32.0-36.0); Mean Corpuscular Volume 88.9 fL (80.0-100.0); Monocytes # (auto) 1.58 K/uL (0.11-0.59); Monocytes % (auto) 8.8 %; Neutrophils # (auto) 14.81 K/uL (1.40-6.50); Neutrophils % (auto) 82.2 %; Platelet Count 297 K/uL (130-400); RDW Coefficient of Variation 13.2 % (11.5-14.5); RDW Standard Deviation 42.8 fL (36.4-46.3); Red Blood Count 4.16 M/uL (4.20-5.40); White Blood Count 17.99 K/ul (4.8-10.8)
[2022-09-05] MEDS: GABAPENTIN 300 MG CAP PO SCH (08:21)
[2022-09-05] MEDS: DOCUSATE SODIUM 100 MG CAP PO SCH (08:26)
[2022-09-05 08:32] LABS: BUN Creatinine Ratio 25.9 (10-20); Calcium 8.8 mg/dl (8.6-10.3); Creatinine Clr Calc Pharmacy 87.2 ml/min; Est GFR (African American) 110.8 ml/min; Est GFR (Non-African American) 95.6 ml/min; Potassium 4.3 mmol/L (3.5-5.1)
[2022-09-05] MEDS ORDERED: amLODIPine BESYLATE 5 MG TAB PO SCH (09:00)
[2022-09-05] MEDS ORDERED: MULTIVITAMIN TAB PO SCH (09:00)
[2022-09-05] MEDS ORDERED: CITALOPRAM 40 MG TAB PO SCH (09:00)
[2022-09-05] MEDS ORDERED: ASPIRIN 81 MG ECTAB PO SCH (09:00)
[2022-09-05] MEDS ORDERED: metFORMIN HCL 500 MG TAB PO SCH (09:00)
[2022-09-05] MEDS ORDERED: IRBESARTAN 150 MG TAB PO SCH (09:00)
--- NOTE | 2022-09-05 09:44 | Orthopedic Progress Note ---
Date of Service September 05, 2022 Assessment & Plan (1) S/P total left hip arthroplasty: Plan: Weightbearing as tolerated with walker assistance Total hip precautions reviewed Keep Silverlon dressing in place until 2-week follow-up Pain control with p.o. medication DVT prophylaxis with aspirin and TERESA stockings Abduction pillow use x6 weeks Ice with easy wrap Plan is to discharge home today with in-home physical therapy for the first 2 weeks postoperatively Follow-up with [facility] orthopedics as previously scheduled With questions contact our clinic at [phone] Admission and Anticipated Discharge Date Admission Date: September 04, 2022 Subjective This 72-year-old female is day 1 status post left total hip arthroplasty. Patient states she is doing very well. She has just completed physical therapy and was able to walk down the vasques without issue. She states she is very anxious to be discharged home. She states that her pain is well controlled with the p.o. pain medication. She denies chest pain, shortness of breath, fever, chills, sweats, numbness or tingling in her left lower extremity. She also denies nausea, vomiting or difficulty voiding. Review of Systems Review of Systems: All systems reviewed & are unremarkable except as noted in Subjective Physical Exam Physical Exam: Left hip: Outer dressing was removed. Silverlon is clean dry and intact and left in place. Patient is able to easily transition from a seated to a standing position with the assistance of her walker. She is able to perform an active straight leg raise test without issue. She is able to actively dorsi and plantarflex her foot. Quad strength is 4 out of 5. She has no pain with light passive hip flexion to 90 degrees. She experiences no pain with passive external rotation but feels some slight tension with passive internal rotation. Logroll test is negative. Patient is neurovascularly intact in the left lower extremity. Results & Data Vital Signs (Past 12 Hours) Vital Signs Temp Pulse Pulse Resp BP BP Pulse Ox 09/05/22 08:06 36.4 C L 82 12 132/64 95 09/05/22 03:37 36.7 C 91 H 18 122/70 94 09/05/22 00:00 37.0 C 74 16 129/71 95 09/04/22 22:32 36.6 C 74 16 134/74 97 O2 Del Method 09/05/22 08:06 Room Air 09/05/22 03:37 Room Air 09/05/22 00:00 Room Air 09/04/22 22:32 Room Air Diagnostic Findings Laboratory Results WBC 17.99 K/ul (4.8-10.8) H 09/05/22 07:42 RBC 4.16 M/uL (4.20-5.40) L 09/05/22 07:42 Hgb 12.0 g/dl (12.0-16.0) 09/05/22 07:42 Hct 37.0 % (37.0-47.0) 09/05/22 07:42 MCV 88.9 fL (80.0-100.0) 09/05/22 07:42 MCH 28.8 pg (25.0-34.0) 09/05/22 07:42 MCHC 32.4 g/dL (32.0-36.0) 09/05/22 07:42 RDW Std Deviation 42.8 fL (36.4-46.3) 09/05/22 07:42 RDW Coeff of Noah 13.2 % (11.5-14.5) 09/05/22 07:42 Plt Count 297 K/uL (130-400) 09/05/22 07:42 MPV 10.0 fL (9.4-12.4) 09/05/22 07:42 Immature Gran % (Auto) 0.5 % 09/05/22 07:42 Neut % (Auto) 82.2 % 09/05/22 07:42 Lymph % (Auto) 8.2 % 09/05/22 07:42 [place] % (Auto) 8.8 % 09/05/22 07:42 Eos % (Auto) 0.1 % 09/05/22 07:42 Baso % (Auto) 0.2 % 09/05/22 07:42 Neut # (Auto) 14.81 K/uL (1.40-6.50) H 09/05/22 07:42 Lymph # (Auto) 1.47 K/uL (1.2-3.4) 09/05/22 07:42 [place] # (Auto) 1.58 K/uL (0.11-0.59) H 09/05/22 07:42 Eos # (Auto) 0.01 K/uL (0-0.50) 09/05/22 07:42 Baso # (Auto) 0.03 K/uL (0-0.2) 09/05/22 07:42 Immature Gran # (Auto) 0.09 K/uL (0.01-0.20) 09/05/22 07:42 Sodium 136 mmol/L (136-145) 09/05/22 07:42 Potassium 4.3 mmol/L (3.5-5.1) 09/05/22 07:42 Chloride 104 mmol/L (98-107) 09/05/22 07:42 Carbon Dioxide 27 mmol/L (21-32) 09/05/22 07:42 Anion Gap 5 (3-11) 09/05/22 07:42 BUN 14 mg/dl (6-23) 09/05/22 07:42 Creatinine 0.54 mg/dl (0.6-1.2) L 09/05/22 07:42 Est Cr Clr Drug Dosing 87.2 ml/min 09/05/22 07:42 Est GFR ( Amer) 110.8 ml/min 09/05/22 07:42 Est GFR (Non-Af Amer) 95.6 ml/min 09/05/22 07:42 BUN/Creatinine Ratio 25.9 (10-20) H 09/05/22 07:42 Glucose 143 mg/dl (70-99(Fasting)) H 09/05/22 07:42 POC Glucose 134 mg/dl (70-99) H 09/04/22 11:17 Calcium 8.8 mg/dl (8.6-10.3) 09/05/22 07:42 SARS-CoV-2, RNA, NAAT NEGATIVE (NEGATIVE) 09/04/22 07:00 Impressions Pelvis X-Ray 09/04/22 11:19 XR pelvis 1-2V routine HISTORY: 72 years-old Female In PACU - Post Surgical left hip arthroplasty COMPARISON: 08/12/2022 TECHNIQUE: AP view of the pelvis FINDINGS: Unchanged appearance of the right hip total joint arthroplasty the left hip arthroplasty is in satisfactory alignment. Expected postoperative soft tissue swelling with deep tissue air. No acute fracture, dislocation or unexpected opaque foreign body. Arterial calcifications. Moderate colonic fecal retention. IMPRESSION: Unremarkable appearance of the left hip total joint arthroplasty. ACT 112: Negative or not required by law. The above report was generated using voice recognition software. It may contain grammatical, syntax or spelling errors. Electronically signed by: Jonathan Arora M.D. 09/04/2022 11:47 AM
--- NOTE | 2022-09-05 09:51 | Discharge Summary ---
Date of Service September 05, 2022 Admission HPI Per Admitting Provider History of Present Illness (including history relevant to procedure): This 72-year-old female presents to the clinic today for preoperative history and physical. Patient complains of significant left-sided groin pain that has been increasing over the past several months. She states that at times she does experience pain that radiates into her thigh. She feels that her range of motion in the hip is very limited as well. Patient states that she had a right total hip arthroplasty performed by Dr. Anitra vogt in 2012 and states that her symptoms present really are exactly the same way that her right hip was before having the replacement. Patient is electing to undergo surgical intervention for her severe left hip osteoarthritis. Review Of Systems: A 12 point review of systems is performed and is unremarkable except for those things stated in the HPI and past medical history. Past Medical History: Problems: Left lumbar radiculitis Diabetes mellitus with peripheral angiopathy without gangrene Osteopenia Major depression in complete remission Peripheral arterial disease History of fusion of cervical spine Cataract associated with type 2 diabetes mellitus Stenosis of cervical spine with myelopathy Lumbar disc narrowing Right lumbar radiculopathy Hypercholesterolemia Solitary thyroid nodule Hypertension Emphysema/COPD Anxiety Low back pain Sacroiliac joint dysfunction of right side Hip osteoarthritis Tobacco user DJD (degenerative joint disease) Procedure History Procedure Procedure Date Comments Appendectomy Kidney stone - kidney stone--laser sx Tubal ligation Epidural steroid injection 05/19/2022 - Left paramedial L5-S1 interlaminar epidural steroid injection under fluoroscopic guidance Epidural steroid injection L5-S1 01/16/2022 Mammogram - screening 10/15/2021 - Impression: There is no mammographic evidence of malignancy. A 1 year screening mammogram is recommended. (10/16/2022). The patient will receive written notification of the results. Bone density scan 10/15/2021 - left femur and left forearm (due to high spine density and history of right hip replacement)Femur neck t-score =- 1.5Femur total t-score = -1.5Forearm radius t-score = -2.110 year probability of fracture:major osteoporotic frature = 9.7%hip fracture 2.3%Repeat bone density test in October 2023 Lumbar epidural steroid injection AND SEPTEMBER 2020 04/02/2020 Right paramedian L5-S1 interlaminar epidural steroid injection under fluoroscopic guidance 04/02/2020 - Preoperative diagnoses: Lumbar spinal stenosis with right greater than left lumbar radiculopathy. Ultrasound of right breast maxillary soft tissue 01/05/2020 - Impression:1. No pathologic right axillary lesions were visualized ultrasonographically. Clinical follow-up is advocated. Lumbar epidural steroid injection 07/28/2019 - Pre-Op Diagnosis: Lumbar Radiculopathy Bilateral Digital Screening Mammogram Tomosynthesis with CAD 12/02/2018 - Impression: ACR BI RADS CATEGORY 2: BenignThere is no mammographic evidence of malignancy. DEXA - Dual energy X-ray photon absorptiometry 12/02/2018 Colonoscopy 10/28/2017 - tubular adenoma - repeat colonoscopy in 5 years - diverticulosis in the sigmoid colon'a singke non-bleeding colonc angioectasia. treated with heater probeone 7mm polyp in the proximal ascending colon, removed with a hot snare. resected and retrivedtwo 2 to 3 vmm polyps in the rectum, removed with a cold biopsy forcepsresected and retrieved Mammogram 12/31/2016 - Impression: ACR BI-RADS CATEGORY 1 : Negative there is no mammographic evidence of malignancy1 year F/U recommended MRI of lumbar spine 05/06/2016 - 1. Severe degenerative intervertebral this changes throughout the entire lumbar spine.2. Prominent right central disc herniation L4-L5 with significant impact upon the thecal sac and narrowing of the neuroforamina primarily on the right. 3. Broad-based central disc herniation L2-L34. Mild broad-based disc herniation L1-L25. Moderate rather significant narrowing of the neuroforamina bilaterally at all levels discribed. Date of last PAP test 11/20/2014 Ultrasound scan of thyroid 01/10/2014 - Numerous small hypochoic foci in the thyroid bilaterally, the largest probably is a cystic lesion, benign appearing in the mid pole on the right measuring a maximum of 0.6cm. These lesions might be followed for stability. CT of chest 10/12/2013 - 1. Mild emphysematous changes2. There are multiple foci of nodular airspace consolidation seen in the upper lobes, right greater than left. This corresponds to the abnormality seen by chest x-ray. The appearance is most suggestive of an infectious or inflammatory process. Neoplasm is considered much less likely but not excluded. F/U to resolution is recommended.3. Mildly enlarged right hilar lymph nodes are likely reactive in nature.4. No pleural effusion is seen right total hip replacement 02/17/2013 Colonoscopy 11/17/2012 Shoulder manipulation 09/13/2010 - Left shoulder manipulatin and injection Allergies and Sensitivities: sulfa drugs(RASH CHILD) Adhesive bandage(rash) Nickel(rash) Family history: Cancer, heart disease, leukemia and stroke Social history: Patient states that she was 1/2 pack/day smoker for many years and is recently cut down to 3 cigarettes/day. Her goal is to be completely tobacco free before her surgery date. She denies alcohol or illicit drug use. Current Home Meds: (Last Updated 08/13 11:53) amLODIPine (amLODIPine 5 mg oral tablet) TAKE 1 TABLET BY MOUTH ONCE DAILY atorvastatin (atorvastatin 40 mg oral tablet) TAKE 1 TABLET BY MOUTH ONCE DAILY ciprofloxacin (Cipro 500 mg oral tablet) 500 mg PO q12h UTI citalopram (citalopram 40 mg oral tablet) 40 mg PO Daily clonazePAM (clonazePAM 0.5 mg oral tablet) 0.75 mg PO qhs fluticasone nasal (Flonase 50 mcg/inh nasal spray) 2 spray each nostril bid PRN gabapentin (gabapentin 100 mg oral capsule) 100 mg PO tid take 1 cap TID x 3 days then increase to 2 cap TID x 3 days then switch to 300mg dose. gabapentin (gabapentin 300 mg oral capsule) 300 mg PO tid complete the 100mg capsule regimen first then start the 300mg irbesartan (irbesartan 300 mg oral tablet) 300 mg PO Daily iron polysaccharide (Ferrex-150 oral capsule) 150 mg PO qMonWedFri metFORMIN (metFORMIN 500 mg oral tablet) 500 mg PO Daily omeprazole (PriLOSEC 20 mg oral delayed release capsule) 20 mg PO qhs NEEDED Admission Exam Per Admitting Provider Physical Exam: (relevant to the procedure, including heart and lung evaluation) General: Alert and oriented x3 with proper grooming and hygiene Eyes: Pupils are equal and reactive to light with accommodation. Extraocular movements are intact Throat: Posterior oropharynx clear with absence of edema, erythema or exudate. Dentition is appropriate Cardiac: Regular rate and rhythm with no murmurs or gallops appreciated Lungs: Clear to auscultation throughout with no wheezing, rales or rhonchi Abdomen: Nonobese, nondistended, nontender with NABS Extremities: Left hip; flexion is limited to 110 degrees, internal rotation to 5 degrees and external rotation to 40 degrees. Patient has a positive straight leg raise test, positive Stinchfield test, positive scour impingement test, and has tenderness to palpation over her groin. She is neurovascularly intact. Quad strength is 4 out of 5. Neuro: Cranial nerves II to XII are intact with no motor or sensory deficit Skin: Normal appearance no open skin areas or discharge Principal Diagnosis Left hip osteoarthritis Discharge Exam Left hip: Outer dressing was removed. Silverlon is clean dry and intact and left in place. Patient is able to easily transition from a seated to a standing position with the assistance of her walker. She is able to perform an active straight leg raise test without issue. She is able to actively dorsi and plantarflex her foot. Quad strength is 4 out of 5. She has no pain with light passive hip flexion to 90 degrees. She experiences no pain with passive external rotation but feels some slight tension with passive internal rotation. Logroll test is negative. Patient is neurovascularly intact in the left lower extremity. Discharge Data Allergies Allergy/AdvReac Type Severity Reaction Status Date / Time adhesive Allergy Mild RASH, SKIN Verified 09/04/22 07:07 MOORE nickel Allergy Mild RASH Verified 09/04/22 07:07 Sulfa (Sulfonamide Allergy Unknown UNSURE, Verified 09/04/22 07:07 Antibiotics) A CHILD Procedures Performed Operation Date: 09/04/22 09:10 Actual Procedures p Left Total Hip Arthroplasty--Uncemented(Left) - Scot Dickey MD Hospital Course (1) S/P total left hip arthroplasty: Patient had an uneventful overnight stay following left total hip arthroplasty. She is doing very well this morning. She is ready to be discharged home. She states she is set up to do in-home physical therapy with [facility] for the first 2 weeks postoperatively. Weightbearing as tolerated with walker assistance Total hip precautions reviewed Keep Silverlon dressing in place until 2-week follow-up Pain control with p.o. medication DVT prophylaxis with aspirin and TERESA stockings Abduction pillow use x6 weeks Ice with easy wrap Plan is to discharge home today with in-home physical therapy for the first 2 weeks postoperatively Follow-up with [facility] orthopedics as previously scheduled With questions contact our clinic at [phone] Total Time Total Time Spent Total Time Spent (In Minutes): 20 mins Discharge Plan Discharge Items Patient Disposition: Home - Home Health Services Reason For Visit: Left Hip Osteoarthrits Discharge Diagnosis: Left Hip Osteoarthritis Activity: As commented below Lifting: None Bathing: Keep incision dry Bathing Comment: May shower tomorrow Sexual Activity: Wait until after follow-up appointment Exercise/Sports: Wait until after follow-up appointment Driving/Machine Use: No driving until cleared by cryptologic support specialist Weightbearing: Left weightbearing Weightbearing Comment: as tolerated with walker assistance Non-emergency contact: Surgeon Call non-emergency contact if: you have any medication questions, your pain is not controlled, your temperature is above 101.5, your wound has increased drainage and your wound pain has increased Follow-up/Referrals: Teena Hammond, [Primary Care Provider] - Diet: Regular Addtl Attending Provider Instructions: Post-operative Instructions Dear Patient and Family/Friends, Before you are discharged from the hospital, it is important to know what to expect when you get home after surgery. To that end, we have created this sheet of discharge instructions which covers many commonly asked questions. Make sure you go through this sheet in its entirety with your nurse before you are discharged. Please note that we will go over the specifics of your surgery and recovery when you return for your first post-operative visit. Sincerely, Dr. Dickey Medications 1. Oxycodone 5 mg: take 1-2 tabs every 4-6 hours as needed for pain control. This will be sent to your pharmacy. 2. Diclofenac Sodium 75 mg: take one tablet twice daily for 30 days post operatively for pain and inflammation relief. This will also be sent to your pharmacy with 1 refill. 3. Aspirin 81 mg: take one tab twice daily for 30 days post operatively for blood clot prevention. Please purchase. 4. Extra Strength Tylenol 500 mg: take 2 tabs every 6-8 hours as needed for additional pain relief. Please purchase. Pain Expect to be in a fair amount of pain after surgery. Remember, our goal is not to eliminate your pain, but to make it tolerable. It is a good idea to stay ahead of your pain by taking the medications you were prescribed once you get home. Typically, the pain starts improving 3-7 days after surgery. You should start weaning off the narcotic pain medication (oxycodone, hydrocodone, hydromorphone, morphine) as soon as your pain improves. Please call our office if your pain is not adequately controlled. Ice Ice your operative site at least 5 times a day for 15-30 minutes at a time. Make sure you have a thin cloth between the ice or cooling unit and your skin to prevent michael bite. This is especially important if you received a nerve block. Continue icing your operative site for the first 5-7 days after surgery, then as needed. Diet/Nausea/Vomiting Start by drinking clear liquids and eating crackers. If you can tolerate this, then you may resume your normal diet. If you feel nauseated or vomit, take Zofran/ondansetron (if prescribed). Please call our office if you have intractable nausea or vomiting, or, if after hours, you may go to the Emergency Room for help. Constipation Constipation is a common side effect of narcotic pain medication. If you have not had a bowel movement within 2 days after surgery, we recommend purchasing an over the counter laxative such as Milk of Magnesia, Dulcolax, or Miralax from a local pharmacy, and taking it as instructed. Call our clinic if any questions. Nerve block The anesthesia team sometimes places a nerve block to help with post-operative pain control. This results in significant numbness and inability to move the extremity. The nerve block usually wears off in 8-12 hours, but sometimes can last up to 24 hours. Please call our office if you are still unable to move your extremity after 24 hours, unless you received a pain pump to take home. Nerve blocks typically wear off quickly, so start taking pain medication as soon as you start feeling soreness near your surgical site. Weight bearing and Range of Motion. Do not bear any weight through your operative extremity immediately after surgery. If you had upper extremity surgery, do not lift anything with that arm. If you are in a knee brace, keep it locked in place until your follow-up. We will discuss your weight bearing, range of motion, and lifting restrictions in detail at your first post-operative appointment. Continuous Passive Motion (CPM) Machine If you were prescribed a CPM machine, it will start after your first post- operative appointment, at which time we will give you instructions on the range of motion settings and duration of treatment Physical therapy You will be given a prescription for physical therapy or occupational therapy at your first post-operative appointment. Typically, patients start therapy within 1 week of surgery Wound care and showering We will inspect your wound at your first post-operative visit, and may do a dressing change at that time. Most patients will be in a water-proof dressing that is removed 14 days after surgery. It is normal to see some dried blood on the dressing. Do not remove your dressing, paper strips or sutures yourself unless you are given permission. Showering is allowed the day after surgery. Do not scrub or remove any dressings. The wound should not be submerged underwater (i.e. in a bathtub or pool) until 4 weeks after surgery TERESA stockings If you were given white stockings, these are to be worn at all times except to shower (on both legs) for the first 2 weeks after surgery. Driving You may not drive while taking narcotic pain medication or while in a cast, splint, sling or brace. You, the patient, need to make the final determination about when you are safe to drive, however, the earliest you may consider driving after surgery is below: Hand/Wrist/Elbow Surgery: 3 days Shoulder Surgery: 2 weeks Hip,/Knee/Ankle Surgery: 4 weeks Fracture repair: 6 weeks Return to Work Your return to work depends on what surgery was done and what type of work you do. Please bring any paperwork your employer needs completed to your first post-operative visit. Also, bring a description of your job duties, as this helps us to understand what risks you may face at work. Travel Avoid long distance travel (greater than 1 hour) in airplanes and cars for the first 6 weeks after surgery. If you must travel, you need to have a Doppler ultrasound done before you travel to rule out a blood clot in your legs. Follow-up You should have a follow-up appointment already scheduled 1-2 days after surgery. If not, please contact our office to make this appointment before you leave the hospital. When to call the office It is normal to have swelling and bruising in the limb that was operated on. This will improve with time. It is also normal to have fevers for the first 2 days after surgery. Reasons you should call your doctor include: Uncontrolled pain; Nausea, vomiting, or constipation that does not improve with medication; Fevers over 101.5, chills, sweats; Drainage or bleeding from the wound; Foul odor; Spreading areas of redness; Any other concerns Pending Studies at Discharge: No Stand-Alone Forms: My [facility] Medications and DC Order Prescriptions: New acetaminophen [Tylenol Extra Strength] 500 mg Tablet 1,000 mg PO Q8 30 Days Qty: 180 0RF aspirin 81 mg Tablet,Delayed Release (Dr/Ec) 81 mg PO BID 30 Days Qty: 60 0RF oxycodone 5 mg Tablet 5 - 10 mg PO Q4H PRN (Reason: post op pain control) Qty: 28 0RF diclofenac sodium 75 mg tablet,delayed release (DR/EC) 75 mg PO BID 30 Days Qty: 60 0RF Continued citalopram 40 mg Tablet 40 mg PO QAM clonazepam 0.5 mg Tablet 0.5 mg PO HS amlodipine [Norvasc] 5 mg Tablet 10 mg PO QAM irbesartan [Avapro] 300 mg Tablet 300 mg PO QAM metformin 500 mg Tablet 500 mg PO QAM Patient Comments: AFTER I EAT SOMETHING gabapentin 300 mg Tablet 300 mg PO TID omeprazole 10 mg Capsule,Delayed Release(Dr/Ec) 10 mg PO QPM atorvastatin 40 mg Tablet 40 mg PO HS Feosol Bifera 28 mg Tablet 1 tab PO 3XWK methocarbamol 500 mg Tablet 500 mg PO Q8H PRN (Reason: Pain) Admission Data Admit Date/Time: 09/04/22 11:19 Attending Provider: Scot Dickey Admit Provider: Scot Dickey Primary Care Provider: Teena Hammond
== END 2022-09-05 11:48 | disposition home health service (06) ==
LOC: 3E 06:33 → ASU 06:33